=== PATIENT | male | born 1990 ===

== ENCOUNTER 2016-12-26 22:20 | Emergency (ER) | payer SELFPAY ==
[2016-12-26] MEDS ORDERED: ONDANSETRON 4 MG ODT TAB ONE (22:42)
[2016-12-26] MEDS ORDERED: MECLIZINE HCL 25 MG TABLET ONE (23:00)
== END 2016-12-26 23:16 | disposition home or self-care (01) ==
LOC: ED 22:20
DX: H81.313 Aural vertigo, bilateral (principal); R11.2 Nausea with vomiting, unspecified

== ENCOUNTER 2016-12-31 00:36 | Emergency (ER) | payer SELFPAY ==
[2016-12-31] MEDS ORDERED: ONDANSETRON 4 MG/2ML 2 ML VIAL ONE (01:35)
== END 2016-12-31 02:16 | disposition home or self-care (01) ==
LOC: ED 00:36
DX: L76.22 Postprocedural hemorrhage of skin and subcutaneous tissue following other procedure (principal); Y83.8 Other surgical procedures as the cause of abnormal reaction of the patient, or of later complication, without mention of misadventure at the time of the procedure; Z79.2 Long term (current) use of antibiotics; Z79.899 Other long term (current) drug therapy
CPT/HCPCS: 99282; 96372; 99283; J2405